=== PATIENT | male | born 1965 | race Caucasian/White ===

== ENCOUNTER 2016-09-14 15:59 | Emergency (ER) | payer OTHER ==
[~2016-09-14] VITALS: Ht 185.4 cm; Wt 90.7 kg
[~2016-09-14 15:59] MED LIST: ALBUTEROL0.09 MG/A1 IH; PRILOSEC40 MG PO; ZANTAC150 MG PO
[2016-09-14 16:02] VITALS: BP 127/85
[2016-09-14] MEDS ORDERED: MULTIVITAMIN-12 10 ML, THIAMINE 100 MG, MAGNESIUM SULFATE 50% 2,000 MG, FOLIC ACID 5 MG... IV ONE (16:10)
--- NOTE | 2016-09-14 16:30 | NUR ---
PATIENT BIBA FOR ETOH. HX COPD, HYPOTHYROIDISM; DENIES N/V/D; SKIN IS PINK/WARM/DRY; AAOX4 WITH EVEN AND STEADY GAIT; LUNGS CLEAR BL; HR EVEN AND REGULAR; PT DENIES ANY FEVER, CP, SOB, OR COUGH AT THIS TIME; PATIENT STATES PAIN OF 0/10 AT THIS TIME; VSS; PATIENT POSITIONED FOR COMFORT; HOB ELEVATED; BEDRAILS UP X2; BED DOWN. ER MD MADE AWARE OF PT STATUS.
[2016-09-14] MEDS ORDERED: ONDANSETRON 4 MG/2 ML VIAL IVP ONE ×2 (17:15→19:40)
--- NOTE | 2016-09-14 17:39 | NUR ---
AAO, COOPERATIVE PT REQUEST TO GO THE RESTROOM; PT AMBULATE TO THE RESTROOM WITH STEADY GAIT
--- NOTE | 2016-09-14 19:15 | NUR ---
REPORT GIVEN TO ELLIOT CERVANTES
--- NOTE | 2016-09-14 19:16 | NUR ---
PT STABLE, VSS. NO S/S OF DISTRESS NOTED AT THIS MOMENT. IV FLUIDS RUNNING. WILL COTINUE TO MONITOR.
[2016-09-14 20:25] VITALS: BP 122/74
[2017-01-31] MEDS ORDERED: NOVAPLUS V0.09 MG/Ac IH (10:41)
[2017-01-31] MEDS ORDERED: SYNTHROID0.1 MG PO (10:52)
[2017-01-31] MEDS ORDERED: SYMBICORT1 AE1 IH (10:52)
== END 2016-09-14 20:25 | disposition home or self-care (01) ==
LOC: MED 15:59
DX: F10.129 Alcohol abuse with intoxication, unspecified (principal); E86.0 Dehydration; J44.9 Chronic obstructive pulmonary disease, unspecified; E03.9 Hypothyroidism, unspecified; F17.210 Nicotine dependence, cigarettes, uncomplicated; Z88.1 Allergy status to other antibiotic agents; Z88.8 Allergy status to other drugs, medicaments and biological substances; Y90.8 Blood alcohol level of 240 mg/100 ml or more
CPT/HCPCS: 96365; 96366; 96375; 96376; 99285; A9153; J2405; J3411; J3475; J3490; J7030